=== PATIENT | female | born 1950 | race Caucasian/White ===

== ENCOUNTER 2024-06-17 15:57 | Inpatient (IN) | payer MEDICARE, BC ==
[~2024-06-17] VITALS: Ht 162.6 cm; Wt 79.4 kg
[2024-06-17] MEDS: ONDANSETRON 4 MG/2 ML VIAL IV ONE (16:48)
[2024-06-17 16:49] LABS: BASOPHILS % (AUTO) 0.4 % (0.0-2.0); EOSINOPHILS # (AUTO) 0.2 K/uL (0.0-0.7); EOSINOPHILS % (AUTO) 2.4 % (0.0-7.0); HEMATOCRIT 37.8 % (31.2-41.9); HEMOGLOBIN 12.4 g/dL (10.9-14.3); LYMPHOCYTES # (AUTO) 1.7 K/uL (0.8-4.8); LYMPHOCYTES % (AUTO) 19.4 % (20.5-51.5); MEAN CORPUSCULAR HGB CONC 33 g/dL (32.3-35.6); MEAN CORPUSCULAR VOLUME 91.3 fL (75.5-95.3); MONOCYTES # (AUTO) 0.5 K/uL (0.1-1.30); MONOCYTES % (AUTO) 5.8 % (0.0-11.0); NEUTROPHILS # (AUTO) 6.1 K/uL (1.8-8.9); PLATELET COUNT (AUTO) 254 K/uL (179-408); RED BLOOD CELL COUNT(AUTO) 4.14 MIL/uL (3.63-4.92); WHITE BLOOD COUNT (AUTO) 8.5 K/uL (3.8-11.8)
[2024-06-17 16:50] LABS: CALCIUM 8.7 mg/dL (8.5-10.1); CARBON DIOXIDE 28 mmol/L (21-32); CHLORIDE 102 mmol/L (98-107); GLUCOSE 109 mg/dL (74-106); POTASSIUM 4.3 mmol/L (3.5-5.1); SODIUM SERUM 140 mmol/L (136-145); UREA NITROGEN, BLOOD 19 mg/dL (7-18)
[2024-06-17] MEDS: MORPHINE SULFATE 4 MG/1 ML DISP.SYRIN IV ONE ×2 (16:50→19:32)
[2024-06-17 16:59] LABS: ALANINE AMINOTRANSFERASE 28 U/L (14-59); ALBUMIN 3.8 g/dL (3.4-5.0); ALKALINE PHOSPHATASE 104 U/L (50-136); ASPARTATE AMINOTRANSFERASE 20 U/L (15-37); BILIRUBIN,DIRECT 0.1 mg/dL (0.0-0.2); BILIRUBIN,TOTAL 0.4 mg/dL (0.2-1.0); TOTAL PROTEIN, SERUM 7.8 g/dL (6.4-8.2)
[2024-06-17] MEDS ORDERED: ABAL1.56 SQ (19:54)
[2024-06-17] MEDS ORDERED: GABA300T25 PO (19:54)
[2024-06-17] MEDS ORDERED: LOSA100T31 PO (19:54)
[2024-06-17] MEDS ORDERED: DULO20CA PO (19:54)
[2024-06-17] MEDS ORDERED: ROSU10TA2 PO (19:54)
[2024-06-17] MEDS ORDERED: FAMO40TA7 PO (19:54)
[2024-06-17] MEDS ORDERED: ONDANSETRON 4 MG/2 ML VIAL IV PRN (20:15)
[2024-06-17] MEDS ORDERED: ACETAMINOPHEN 650 MG SUPP.RECT RC PRN (20:15)
[2024-06-17 21:00] VITALS: BP 147/70; TEMP 97.7; O2SAT 95
[2024-06-17] MEDS: IV D5/ 0.9% NACL 1,000 ML IV PRN (21:29)
[2024-06-17] MEDS: LOSARTAN POTASSIUM 50 MG TABLET PO SCH (22:43)
[2024-06-17] MEDS: MORPHINE SULFATE 4 MG/1 ML DISP.SYRIN IV PRN (22:44)
[2024-06-17] MEDS ORDERED: TYMLOS SQ SCH (22:45)
[2024-06-18 04:00] VITALS: BP 123/64; TEMP 98.4
[2024-06-18 07:17] LABS: BASOPHILS # (AUTO) 0.1 K/UL (0.0-0.2); BASOPHILS % (AUTO) 0.7 % (0.0-2.0); EOSINOPHILS # (AUTO) 0.1 K/uL (0.0-0.7); EOSINOPHILS % (AUTO) 1.7 % (0.0-7.0); HEMATOCRIT 37.6 % (31.2-41.9); HEMOGLOBIN 12.4 g/dL (10.9-14.3); LYMPHOCYTES # (AUTO) 1.3 K/uL (0.8-4.8); LYMPHOCYTES % (AUTO) 15.9 % (20.5-51.5); MEAN CORPUSCULAR HEMOGLOBIN 30.4 uug (24.7-32.8); MEAN CORPUSCULAR HGB CONC 33 g/dL (32.3-35.6); MEAN CORPUSCULAR VOLUME 92.2 fL (75.5-95.3); MONOCYTES # (AUTO) 0.6 K/uL (0.1-1.30); MONOCYTES % (AUTO) 7.7 % (0.0-11.0); PLATELET COUNT (AUTO) 228 K/uL (179-408); RED BLOOD CELL COUNT(AUTO) 4.08 MIL/uL (3.63-4.92); RED CELL DISTRIBUTION WIDTH 13.9 % (12.3-17.7); WHITE BLOOD COUNT (AUTO) 8.1 K/uL (3.8-11.8)
[2024-06-18 07:26] LABS: DIFFERENTIAL COMMENT 1
[2024-06-18 07:29] LABS: IRON, SERUM 24 ug/dL (50-175)
[2024-06-18 07:31] LABS: ALANINE AMINOTRANSFERASE 21 U/L (14-59); ALBUMIN 3.1 g/dL (3.4-5.0); ALKALINE PHOSPHATASE 98 U/L (50-136); ASPARTATE AMINOTRANSFERASE 20 U/L (15-37); BILIRUBIN,TOTAL 0.4 mg/dL (0.2-1.0); CALCIUM 8.9 mg/dL (8.5-10.1); CARBON DIOXIDE 29 mmol/L (21-32); CHLORIDE 105 mmol/L (98-107); GLUCOSE 118 mg/dL (74-106); PHOSPHOROUS 4.1 mg/dL (2.5-4.9); POTASSIUM 4.2 mmol/L (3.5-5.1); SODIUM SERUM 140 mmol/L (136-145); TOTAL PROTEIN, SERUM 6.9 g/dL (6.4-8.2); UREA NITROGEN, BLOOD 17 mg/dL (7-18)
[2024-06-18 08:00] VITALS: BP 128/86; TEMP 98.3; O2SAT 94
[2024-06-18] MEDS: PANTOPRAZOLE SODIUM 40 MG VIAL IV SCH (08:20)
[2024-06-18] MEDS ORDERED: GABA300C PO (11:16)
[2024-06-18] MEDS ORDERED: IPRA21SP NS (11:20)
[2024-06-18 12:00] VITALS: BP 121/70; TEMP 99.2; O2SAT 93
[2024-06-18 15:44] VITALS: BP 147/66; TEMP 98.1; O2SAT 94
[2024-06-18] MEDS ORDERED: PANT40VI IV (18:33)
[2024-06-18] MEDS ORDERED: ONDA4VIA23 IV (18:33)
[2024-06-18] MEDS ORDERED: Patient May Use Own Med- Md Ok SQ (18:33)
[2024-06-18] MEDS ORDERED: ACET650S13 RC (18:33)
[2024-06-18] MEDS ORDERED: Morphine Sulfate Inj IV (18:33)
[2024-06-18] MEDS ORDERED: [UNRECOGNIZED DRUG - OTHER] SQ SCH (21:00)
[2024-06-18 21:21] VITALS: BP 153/73; TEMP 98.3; O2SAT 99
== END 2024-06-18 21:10 | disposition short-term general hospital (02) | DRG 536 ==
LOC: ER 15:57 → MEDSURG3 20:00
PROVIDERS: ADMIT Internal Medicine; ATTEND Internal Medicine
DX: S72.002A Fracture of unspecified part of neck of left femur, initial encounter for closed fracture (principal); D68.59 Other primary thrombophilia; W10.1XXA Fall (on)(from) sidewalk curb, initial encounter; Y93.H9 Activity, other involving exterior property and land maintenance, building and construction; Y92.008 Other place in unspecified non-institutional (private) residence as the place of occurrence of the external cause; M51.369 Other intervertebral disc degeneration, lumbar region without mention of lumbar back pain or lower extremity pain; Z98.890 Other specified postprocedural states; Z74.09 Other reduced mobility; I70.0 Atherosclerosis of aorta; M81.0 Age-related osteoporosis without current pathological fracture; E66.9 Obesity, unspecified; Z68.30 Body mass index [BMI] 30.0-30.9, adult; Z79.899 Other long term (current) drug therapy; G62.9 Polyneuropathy, unspecified; F32.A Depression, unspecified; Z87.891 Personal history of nicotine dependence; I51.7 Cardiomegaly
CPT/HCPCS: 36415; 71045; 73090; 73502; 83550; 83735; 84100; 84484; 85025; 85730; 86850; 86900; 86901; A4606; A4663; G0378; J7042